=== PATIENT | female | born 1995 | race Caucasian/White ===

== ENCOUNTER 2019-07-22 20:18 | Inpatient (IN) | payer MEDICAID ==
[~2019-07-22] VITALS: Ht 149.9 cm; Wt 77.7 kg
[2019-07-22] MEDS ORDERED: LACTATED RINGER'S 1,000 ML IV PRN (20:45)
[2019-07-22 20:51] VITALS: Ht 149.9 cm; Wt 77.7 kg
[2019-07-22] MEDS ORDERED: BUTORPHANOL 2 MG INJ IV PRN (21:00)
[2019-07-22] MEDS ORDERED: IBUPROFEN 600 MG TAB PO PRN (21:00)
[2019-07-22] MEDS ORDERED: METHYLERGONOVINE 0.2 MG INJ IM PRN (21:00)
[2019-07-22] MEDS ORDERED: LIDOCAINE 1% (MPF) 30 ML INJ INJ PRN (21:00)
[2019-07-22] MEDS ORDERED: CARBOPROST 250 MCG INJ IM PRN (21:00)
[2019-07-22] MEDS ORDERED: OXYTOCIN 30 UNITS/LR 500 ML IV SCH ×2 (21:00)
[2019-07-22] MEDS ORDERED: MISOPROSTOL 200 MCG TAB PR PRN (21:00)
[2019-07-22] MEDS ORDERED: OXYTOCIN 30 UNITS/LR 500 ML IV PRN (21:00)
[2019-07-22] MEDS ORDERED: MINERAL OIL LIGHT 10 ML VIAL TOP PRN (21:00)
[2019-07-22] MEDS ORDERED: AMPICILLIN 2 GM/NS (PMX) 100 ML IV ONE (21:00)
[2019-07-22] MEDS: LACTATED RINGER'S 1,000 ML IV SCH (21:17)
[2019-07-22] MEDS ORDERED: BETAMET NA PHOS/AC (6 MG/ML) 2 ML INJ SYG IM SCH (21:30)
[2019-07-22] MEDS ORDERED: FENTAnyl 2MCG/ML-ROPIV 0.2% 100 ML ONE (23:36)
[2019-07-23] MEDS ORDERED: NALOXONE (0.4 MG/ML) INJ IV PRN
[2019-07-23] MEDS ORDERED: FENTAnyl 2MCG/ML-ROPIV 0.2% 100 ML BAG EPI SCH
[2019-07-23] MEDS ORDERED: AMPICILLIN 1 GM/NS (PMX) 50 ML IV SCH (01:00)
[2019-07-23] MEDS: LACTATED RINGER'S 1,000 ML IV SCH (03:31)
[2019-07-23] MEDS ORDERED: OXYTOCIN 30 UNITS/LR 500 ML IV SCH (05:40)
[2019-07-23] MEDS ORDERED: LACTATED RINGER'S 1,000 ML IV* SCH (05:40)
[2019-07-23] MEDS ORDERED: CARBOPROST 250 MCG INJ IM PRN (06:00)
[2019-07-23] MEDS ORDERED: MISOPROSTOL 200 MCG TAB PR PRN (06:00)
[2019-07-23] MEDS ORDERED: LANOLIN HPA 1 PKT TOP PRN (06:00)
[2019-07-23] MEDS ORDERED: METHYLERGONOVINE 0.2 MG INJ IM PRN (06:00)
[2019-07-23] MEDS ORDERED: OXYTOCIN 30 UNITS/LR 500 ML IV PRN (06:00)
[2019-07-23] MEDS ORDERED: HYDROCODONE/APAP (5/325) TAB PO PRN (06:00)
[2019-07-23] MEDS: IBUPROFEN 600 MG TAB PO SCH ×4 (09:02→23:54)
[2019-07-23 09:15] VITALS: BP 119/70; PULSE 82; RESP 16
[2019-07-23 16:00] VITALS: BP 114/60; PULSE 80; RESP 16
[2019-07-23 20:10] VITALS: BP 115/66; PULSE 80; RESP 18
[2019-07-24 04:00] VITALS: BP 110/59; PULSE 74; RESP 17
[2019-07-24] MEDS: IBUPROFEN 600 MG TAB PO SCH ×2 (05:33→12:19)
[2019-07-24] MEDS ORDERED: BISACODYL 10 MG SUPP PR ONE (06:30)
[2019-07-24] MEDS ORDERED: MAGNESIUM HYDROXIDE 30ML CUP PO ONE (06:30)
[2019-07-24 07:40] VITALS: BP 115/66; PULSE 83; RESP 24
[2019-07-25] MEDS ORDERED: DIPHTH/TET/ACEL PERTUSS (ADULT) 0.5 ML VIAL IM* ONE (09:00)
== END 2019-07-24 12:40 | disposition home or self-care (01) | DRG 807 ==
LOC: OBT 20:18 → L-D 20:18 → OBT 20:44 → PP1 07-23 09:10
PROVIDERS: ADMIT Obstetrics & Gynecology; ATTEND Obstetrics & Gynecology
PROC: 10E0XZZ Delivery of Products of Conception, External Approach (ICD-10-PCS; principal; 2019-07-23)
DX: O60.14X0 Preterm labor third trimester with preterm delivery third trimester, not applicable or unspecified (principal); Z37.0 Single live birth; O42.013 Preterm premature rupture of membranes, onset of labor within 24 hours of rupture, third trimester; O24.420 Gestational diabetes mellitus in childbirth, diet controlled; O69.81X0 Labor and delivery complicated by cord around neck, without compression, not applicable or unspecified; Z3A.36 36 weeks gestation of pregnancy
CPT/HCPCS: 62322; 76815; 80307; 84112; 85025; 85610; 85730; 86592; 86850; 86900; 86901; 87340; 99464; G0463; J0290; J0702; J2590; J3010; J7120